=== PATIENT | female | born 1945 | race Caucasian/White ===

== ENCOUNTER 2017-08-28 19:43 | Observation (INO) ==
[2017-08-28] MEDS ORDERED: 0.9 % Sodium Chloride 1,000 ML IVC ONE (21:34)
--- NOTE | 2017-08-28 21:34 | Emergency Department Note ---
Disposition Clinical Impression: Gastroenteritis, Dehydration, HTN (hypertension), DMII (diabetes mellitus, type 2) Disposition: Admitted As Inpatient Condition: Good Referrals: Shanice Hankins CNP [Primary Care Provider] - Forms: ED Satisfaction Letter Time of Disposition: 23:20 (isela bess [facility]) Nausea/Vomiting/Diarrhea HPI - General Chief complaint: ED Nausea/Vomiting/Diarrhea Stated complaint: diarrhea Time Seen by Provider: 08/28/17 21:00 Source: patient Mode of arrival: ambulatory Limitations: no limitations Nursing Notes Reviewed: Yes Vital Signs Reviewed: Yes - History of Present Illness HPI Narrative: 13 month history of chronic diarrhea patient states though that passed months she has been having increasing diarrhea she said that she had this episode about 8 months ago this intensity ended up being hospitalized because of low potassium and low magnesium patient states that she is having no leg pains no discomfort states that she is urinating denies of burning urgency staying she states that she is not having any leg cramps patient states that she just cannot get out of the bathroom keeps going back keeps continues to have small bowel movements she denies fever chills lightheadedness dizziness she denies anything makes it better anything makes it worse she denies abdominal pain or discomfort except for prior to having an episode of diarrhea shows cough cold of flulike symptoms numbness tingling weakness recent weight gain or weight loss systems are reviewed and are otherwise negative Pt Subjective Complaint: nausea, vomiting (thick partially digested foods nonesincethis am), diarrhea, abdominal pain (at time of defecation ) Onset (ago): month(s) (13 hx with a prior episode of admission due to electrolytes and worsethis past month worsening this past week has had work up in dr's office) Description of emesis: food contents Description of Diarrhea: water, mucous If pain, Location of pain: diffuse Severity: mild Severity scale (1-10): 2 Quality: cramping Consistency: intermittent, Improving Improves with: nothing Worsens with: eating, bowel movement, vomiting Context: history of abdominal surgery (hysterectomy), other (prior hx of this and ) Associated symptoms: Reports: loss of appetite, nausea/vomiting. Denies: myalgias, chest pain, cough, diaphoresis, fever/chills, headaches, malaise, dysuria, shortness of breath, syncope, weakness - Related Data Home Medications Medication Instructions Recorded Confirmed Amlodipine Besylate 10 mg PO DAILY 07/23/16 08/28/17 Lisinopril [Zestril] 40 mg PO DAILY 07/23/16 08/28/17 Metoprolol [Lopressor] 25 mg PO BID 07/23/16 08/28/17 Allergies Allergy/AdvReac Type Severity Reaction Status Date / Time ibuprofen [From Motrin] Allergy Nausea Verified 08/28/17 20:34 All systems ED: reviewed and negative except as stated. Review of Systems: As Per HPI Constitutional: Reports: weight change (loss). Denies: fever, chills, weakness Eyes: Denies: eye pain, eye discharge ENT ED: Denies: ear pain Cardiovascular: Denies: chest pain, palpitations Respiratory: Denies: cough, wheezes Gastrointestinal: Reports: abdominal pain (cramping), nausea, vomiting, diarrhea Genitourinary: Denies: urgency, dysuria, frequency Musculoskeletal: Denies: back pain, neck pain Integumentary: Denies: abrasion Neurological: Denies: headache Psychiatric: Denies: anxiety, depression Endocrine: Denies: fatigue, heat or cold intolerance Hematological/Lymphatic: Denies: easy bleeding Allergic/Immunologic: Denies: facial swelling Past Medical History - Past Medical History Attestation: Yes The following information was validated with the patient. 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 - Social History Smoking Status: Never smoker Smokeless Tobacco Status: Yes Alcohol use: Reports: none Drug use: Reports: none Physical Exam - General Limitations: no limitations General appearance: alert, in no apparent distress - Head Head exam: atraumatic, normocephalic, normal inspection - Eye Eye exam: Present: normal appearance, PERRL, EOMI - ENT ENT exam: normal exam, normal oropharynx, mucous membranes moist, TM's normal bilaterally, normal external ear exam - Neck Neck exam: Present: normal inspection, full ROM, trachea midline - Chest Chest inspection: Present: normal inspection, symmetric chest wall rise - Respiratory Respiratory exam: Present: normal lung sounds bilaterally - Cardiovascular Cardiovascular exam: Present: regular rate, normal rhythm, normal heart sounds - Abdominal Exam Abdominal exam: Present: soft, tenderness, distention, hyperactive bowel sounds. Absent: mass, pulsatile mass - Extremities Exam Extremities exam: Present: normal inspection, full ROM, normal capillary refill. Absent: tenderness, pedal edema, joint swelling, calf tenderness - Expanded Lower Extremity Exam Neurovascular/Tendon exam: Present: normal capillary refill, normal fine/light touch Gait: observed and normal - Back Exam Back exam: Present: normal inspection, full ROM. Absent: muscle spasm - Neurological Exam Neurological exam: Present: alert, oriented X3, CN II-XII intact - Psychiatric Psychiatric exam: Present: normal affect, normal mood - Skin Skin exam: Present: warm, dry, intact, normal color Course Course Narrative: Patient was seen and examined in between multiple trips to the restroom x-rays and labs show that she is hyperkalemic with was consistent with an enteritis CT scan was ordered patient to be admitted for observation with IV hydration patient agreeable transferred to [facility] stable Vital Signs Temperature 97.5 F L 08/28/17 20:27 Pulse Rate 77 08/28/17 20:27 Respiratory Rate 16 08/28/17 20:27 Blood Pressure 133/73 08/28/17 20:27 O2 Sat by Pulse Oximetry 100 08/28/17 20:27 Temperature 97.5 F L 08/28/17 20:27 Pulse Rate 77 08/28/17 20:27 Respiratory Rate 16 08/28/17 20:27 Blood Pressure 133/73 08/28/17 20:27 O2 Sat by Pulse Oximetry 100 08/28/17 20:27 Oxygen Delivery Oxygen Delivery Room Air Nausea/Vomiting/Diarrhea - MDM Narrative Medical decision making narrative: Colitis enteritis are also other etiologies may need endoscopy performed to evaluate due the fact that this is been an ongoing problem for up to 13 months - Differential Diagnosis Likely: gastroenteritis, dehydration - Medical Records Medical records reviewed: Yes I reviewed the patient's medical records. - Lab Data Lab results reviewed: Yes I reviewed the patient's lab results. Result diagrams: 08/28/17 21:43 08/28/17 21:43 Lab Results 08/28/17 08/28/17 08/28/17 Range/Units 21:43 21:43 21:43 WBC 12.0 H (4.3-11.1) K/mcL RBC 3.91 (3.82-4.97) M/mcL Hgb 11.8 (11.5-15.4) g/dL Hct 34.9 L (35.3-44.9) % MCV 89.3 (83.0-100.0) fL MCH 30.2 (28.0-33.3) pg MCHC 33.8 (31.6-35.5) g/dL RDW 12.9 (11.5-14.5) % Plt Count 198 (140-400) K/mcL MPV 11.5 (9.4-12.4) fL Immature Gran % 0.2 (0-4) % Seg Neutrophils % 74.2 % Lymphocytes % 17.8 % Monocytes % 3.8 % Eosinophils % 3.7 % Basophils % 0.3 % Neutrophils # 8.9 (1.6-8.9) K/mcL Lymphocytes # 2.1 (0.6-4.6) K/mcL Monocytes # 0.5 (0.0-1.3) K/mcL Eosinophils # 0.4 (0.0-0.6) K/mcL Basophils # 0.0 (0.0-0.2) K/mcL Sodium 139 (136-145) mEq/L Potassium 5.4 H (3.5-4.5) mEq/L Chloride 109 (98-109) mEq/L Carbon Dioxide 20 (19-29) mEq/L BUN 44 H (7-20) mg/dL Creatinine 2.51 H (0.57-1.11) mg/dL Est GFR ( Amer) 23 L (> 60) Est GFR (Non-Af Amer) 19 L (> 60) BUN/Creatinine Ratio 18 (6-26) Glucose 147 H (70-99) mg/dL Calculated Osmolality 302 H (280-300) Calcium 9.8 (8.6-10.8) mg/dL Phosphorus 3.7 (2.3-4.7) mg/dL Magnesium 2.1 (1.6-2.6) mg/dL Total Bilirubin 0.4 (0.2-1.2) mg/dL AST 19 (5-34) Units/L ALT 17 (0-55) Units/L Alkaline Phosphatase 75 (38-126) Units/L Serum Total Protein 7.6 (6.0-8.3) g/dL Albumin 3.7 (3.5-5.0) g/dL Globulin 3.9 H (2.4-3.5) g/dL Albumin/Globulin Ratio 0.9 L (1.1-2.2) - Radiology Data Radiology results reviewed: Yes I reviewed the patient's radiology results. ITS Impressions Chest/Abdomen X-ray 08/28/17 21:34 IMPRESSION: 1. No acute cardiopulmonary abnormality. 2. No evidence of bowel obstruction or subdiaphragmatic free air. 3. Nonspecific small air-fluid levels in the right abdomen may reflect enteritis. D/ / Chema Baxter MD / Chema Baxter MD Interpreting Provider: Chema Baxter MD Critical Care Time Critical Care Time: No
[2017-08-28 22:01] LABS: Basophils % 0.3 %; Eosinophils # 0.4 K/mcL (0.0-0.6); Eosinophils % 3.7 %; Hematocrit 34.9 % (35.3-44.9); Hemoglobin 11.8 g/dL (11.5-15.4); Immature Granulocytes % 0.2 % (0-4); Lymphocytes # 2.1 K/mcL (0.6-4.6); Lymphocytes % 17.8 %; Mean Corpuscular HGB Conc 33.8 g/dL (31.6-35.5); Mean Corpuscular Hemoglobin 30.2 pg (28.0-33.3); Mean Corpuscular Volume 89.3 fL (83.0-100.0); Mean Platelet Volume 11.5 fL (9.4-12.4); Monocytes # 0.5 K/mcL (0.0-1.3); Monocytes % 3.8 %; Neutrophils # 8.9 K/mcL (1.6-8.9); Platelet Count 198 K/mcL (140-400); Red Blood Count 3.91 M/mcL (3.82-4.97); Red Cell Distribution Width 12.9 % (11.5-14.5); Segmented Neutrophils % 74.2 %
[2017-08-28 22:10] LABS: Magnesium 2.1 mg/dL (1.6-2.6); Phosphorous 3.7 mg/dL (2.3-4.7)
[2017-08-28 22:42] LABS: Albumin 3.7 g/dL (3.5-5.0); Albumin/Globulin Ratio 0.9 (1.1-2.2); Bilirubin,Total 0.4 mg/dL (0.2-1.2); Calcium 9.8 mg/dL (8.6-10.8); Globulin 3.9 g/dL (2.4-3.5); Potassium 5.4 mEq/L (3.5-4.5); Total Protein 7.6 g/dL (6.0-8.3)
[2017-08-28] MEDS ORDERED: 0.9 % Sodium Chloride 1,000 ML IVC SCH (23:15)
[2017-08-29] MEDS ORDERED: 0.9 % Sodium Chloride 1,000 ML IVC SCH (01:16)
[2017-08-29] MEDS ORDERED: D5% in Water 1,000 ML IVC PRN (01:16)
[2017-08-29] MEDS ORDERED: Dextrose Gel 15 GM PO PRN ×2 (01:16)
[2017-08-29] MEDS ORDERED: Naloxone 0.4 MG/ML INJ IVP PRN (01:16)
[2017-08-29] MEDS ORDERED: Ondansetron ODT 4 MG TAB.RAPDIS SL PRN (01:16)
[2017-08-29] MEDS ORDERED: *HR* Dextrose 50 % in Water (Syg) 50 ML SYRINGE IVP PRN (01:16)
[2017-08-29 06:06] LABS: Basophils % 0.5 %; Eosinophils # 0.6 K/mcL (0.0-0.6); Eosinophils % 7.2 %; Hematocrit 27.1 % (35.3-44.9); Hemoglobin 9.3 g/dL (11.5-15.4); Immature Granulocytes % 0.1 % (0-4); Lymphocytes # 2.3 K/mcL (0.6-4.6); Lymphocytes % 27.3 %; Mean Corpuscular HGB Conc 34.3 g/dL (31.6-35.5); Mean Corpuscular Hemoglobin 30.5 pg (28.0-33.3); Mean Corpuscular Volume 88.9 fL (83.0-100.0); Mean Platelet Volume 11.1 fL (9.4-12.4); Monocytes # 0.6 K/mcL (0.0-1.3); Monocytes % 6.8 %; Neutrophils # 4.9 K/mcL (1.6-8.9); Platelet Count 144 K/mcL (140-400); Red Blood Count 3.05 M/mcL (3.82-4.97); Red Cell Distribution Width 12.9 % (11.5-14.5); Segmented Neutrophils % 58.1 %
[2017-08-29 06:17] LABS: Calcium 8.6 mg/dL (8.6-10.8); Potassium 4.5 mEq/L (3.5-4.5)
[2017-08-29] MEDS ORDERED: Lisinopril 20 MG TABLET PO SCH (09:00)
[2017-08-29] MEDS ORDERED: amLODIPine 5 MG TABLET PO SCH (09:00)
[2017-08-29] MEDS: Insulin LISPRO 300 UNITS/3 ML VIAL SQ SCH ×2 (09:21→12:39)
[2017-08-29 12:37] VITALS: BP 122/86
--- NOTE | 2017-08-29 13:58 | Internal Med History&Physical ---
Date of Encounter: 08/29/17 Time of Encounter: 13:56 Assessment and Plan (1) Gastroenteritis Current visit: Yes Status: Acute Right now do not have a specific diagnosis but the CAT scan said questionable enteritis. No obstructions no other acute changes. She needs to be followed up by Gastro services (2) Dehydration Current visit: Yes Status: Acute BUN and creatinine are down of these resolved she took breakfast and lunch. Internal Medicine - H&P: HPI Chief complaint: Persistent diarrhea and nausea vomiting dehydration Admitted From: Emergency Dept Plans for Post Hospital Care: Home History of present illness: Ms. Suarez is a 72 year old female Vision is long history of persistent diarrhea nausea vomiting at times cramping discomfort with diarrhea and has not seen a verify rep for workup. She did have a colonoscopy 5 years ago which did not reveal anything other than some polyps and they were removed Past Med Surg Social Fam HX - Past Medical History Source: patient, old records reviewed (Persistent diarrhea and occasional nausea vomiting cramping also she gets dehydrated with frequent stools,) Medical history: arthritis, diabetes, hyperlipidemia, hypertension Psychiatric history: no psych history - Past Surgical History Surgical History: hysterectomy, other - Social History Smoking Status: Never smoker Smokeless Tobacco Status: Yes Alcohol use: none Drug use: none - Family History Mother Adopted: No Twin of Family Member: Yes Living Status: Age at : 60 Cause of : diabetes Hx Family Cardiac Disorders: Yes Hx Family Respiratory Disorders: No Hx Family Cancer: Yes (sister) Hx Family GI Disorders: No Hx Family Genitourinary Disorders: No Hx Family Endocrine Disorder: Yes (DM) Hx Family Musculoskeletal Disorders: No Hx Family Neuromuscular Disorders: No Hx Family Neurologic Disorders: No Hx Family HEENT Disorders: No Hx Family Autoimmune Disorders: No Hx Family Reproductive Disorders: No Hx Family Psychosocial Disorders: No Hx Family Medical Disorders: No Internal Medicine - H&P: Meds Amlodipine Besylate 10 mg PO DAILY 07/23/16 [History] Lisinopril [Zestril] 40 mg PO DAILY 07/23/16 [History] Metoprolol [Lopressor] 25 mg PO BID 07/23/16 [History] 3 Allergy/AdvReac Type Severity Reaction Status Date / Time ibuprofen [From Motrin] Allergy Nausea Verified 08/28/17 20:34 All Systems PM: A 10-system review of systems was performed and is negative for pertinent findings except as documented above in the HPI. - Constitutional Vitals: Temp Pulse Resp BP Pulse Ox 98 F 80 15 122/86 95 08/29/17 12:00 08/29/17 12:00 08/29/17 12:00 08/29/17 12:00 08/29/17 12:00 - Head Head exam: Present: atraumatic, normal inspection, normocephalic - Neck Neck exam general surgery: Present: supple, trachea midline. Absent: lymphadenopathy - Respiratory Respiratory exam: Present: CTAB. Absent: accessory muscle use, rales, rhonchi, wheezes - Cardiovascular Cardiovascular exam: Present: RRR, +S1, +S2. Absent: diastolic murmur, gallop, rubs, systolic murmur - GI/Abdominal GI/Abdominal exam: Present: normal bowel sounds, soft, no peritoneal signs. Absent: distended, tenderness Internal Med - H&P Results - Labs CBC & Chem 7: 08/29/17 05:55 08/29/17 05:55 Labs: Short CBC 08/29/17 Range/Units 05:55 WBC 8.4 (4.3-11.1) K/mcL Hgb 9.3 L D (11.5-15.4) g/dL Hct 27.1 L (35.3-44.9) % Plt Count 144 (140-400) K/mcL Neutrophils # 4.9 (1.6-8.9) K/mcL BMP 08/29/17 05:55 Sodium 141 Potassium 4.5 Chloride 115 H Carbon Dioxide 20 BUN 35 H Creatinine 1.80 H Glucose 110 H Calcium 8.6 White counts down the BUN and creatinine are down. We will arrange a follow-up.
--- NOTE | 2017-08-29 14:03 | Discharge Summary ---
Date of Encounter: 08/29/17 Time of Encounter: 14:01 - Discharge Diagnosis (1) Gastroenteritis Priority: Primary Status: Acute (2) Dehydration Priority: Primary Status: Acute - Discharge Medications Home Medications: Amlodipine Besylate 10 mg PO DAILY 07/23/16 [History] Lisinopril [Zestril] 40 mg PO DAILY 07/23/16 [History] Metoprolol [Lopressor] 25 mg PO BID 07/23/16 [History] Allergies/Adverse Reactions: 3 Allergy/AdvReac Type Severity Reaction Status Date / Time ibuprofen [From Motrin] Allergy Nausea Verified 08/28/17 20:34 Date of admission: 08/28/17 23:58 Primary care physician: Shanice Hankins CNP Consults: 08/29/17 01:41 Consult to Nutrition [CONS] Routine Comment: Consulting Provider: NUTRITION Reason for Dietary Consult: Diet Education Discharging clinician: Ravindra Gloria Anticipated date of discharge: 08/29/17 - Patient Status Disposition: Home, Self-Care Functional capacity at discharge: independent ambulation Overall status at discharge: patient is back to baseline - Discharge Instructions Follow Up With: Shanice Haknins CNP [Primary Care Provider] - Interval History: Patient was admitted for dehydration so we can give her some IV fluids. This morning she had no diarrhea no cramping or discomfort and 8 Hospital course: Ms. Suarez is a 72 year old female Patient is much better today to meals with no diarrhea reported. - Time Spent with Patient Total time spent providing and/or coordinating discharge services: Less than 30 minutes - Constitutional Vitals: Temp Pulse Resp BP Pulse Ox 98 F 80 15 122/86 95 08/29/17 12:00 08/29/17 12:00 08/29/17 12:00 08/29/17 12:00 08/29/17 12:00 - Head Head exam: Present: atraumatic, normal inspection, normocephalic - Neck Neck exam general surgery: Present: supple, trachea midline. Absent: lymphadenopathy - Respiratory Respiratory exam: Present: CTAB. Absent: accessory muscle use, rales, rhonchi, wheezes - Cardiovascular Cardiovascular exam: Present: RRR, +S1, +S2. Absent: diastolic murmur, gallop, rubs, systolic murmur - GI/Abdominal GI/Abdominal exam: Present: normal bowel sounds, soft, no peritoneal signs. Absent: distended, tenderness
== END 2017-08-29 14:29 | disposition home health service (06) ==
LOC: EMEROOGRE 19:43 → INPGRE 19:43
PROVIDERS: ADMIT Internal Medicine; ATTEND Internal Medicine